=== PATIENT | female | born 1990 | race Caucasian/White ===

== ENCOUNTER → 2016-04-10 | Outpatient (CLI) | payer MEDICAID ==
[~2016-04-10] MED LIST: BACT800T5 PO; FE A1TAB3 PO; FERR325T PO; IBUP-232 PO; LEVO.05 PO; PREN1CAP33; TERC0.8C VAGINAL
== END ==
LOC: HPND 09:22
PROVIDERS: ATTEND Obstetrics & Gynecology Obstetrics
DX: O99.212 Obesity complicating pregnancy, second trimester (principal); E66.01 Morbid (severe) obesity due to excess calories; Z68.41 Body mass index [BMI] 40.0-44.9, adult
CPT/HCPCS: 76816

== ENCOUNTER → 2016-05-22 | Outpatient (CLI) | payer MEDICAID ==
[~2016-05-22] MED LIST changes: -TERC0.8C VAGINAL
== END ==
LOC: HPND 08:49
PROVIDERS: ATTEND Obstetrics & Gynecology Obstetrics
DX: O99.213 Obesity complicating pregnancy, third trimester (principal); E66.01 Morbid (severe) obesity due to excess calories; Z68.41 Body mass index [BMI] 40.0-44.9, adult
CPT/HCPCS: 76816

== ENCOUNTER 2016-07-05 13:43 | Emergency (ER) | payer MEDICAID ==
[~2016-07-05 13:43] MED LIST changes: -BACT800T5 PO; -FERR325T PO; -IBUP-232 PO
[2016-07-05 14:32] VITALS: BP 134/73; PULSE 114
--- NOTE | 2016-07-05 14:49 | PD ---
HPI Chief Complaint Leakage of fluid Date Seen: Jul 05, 2016 Time Seen: 14:41 Travel History International Travel<30 Days: No Contact w/Intl Traveler<30Days: No Known Affected Area: No History of Present Illness HPI This is a 26y/o at 38w6d who presents to the [facility] with c/o leakage of fluid since 299, she initially noted a gush of fluid with some minimal leakage since then. She denies vaginal bleeding or leakage of fluid with reports of active movements. care at [facility] [place] [facility], records reviewed, complicated by: 1. young multigravida 2. hypothyroidism 3. polyhydramnios which resolved 4. abn 1 hr glucose and normal 3 hour glucose 5. Marginal previa which resolved 6. desires tubal ligation Para: 3 : 6 Miscarriage: 1 History Past Medical History Narrative Medical Hypothyroidism Obstetric History Obstetric History 2009 38w , induced due to cholelithiasis and need for surgery, Male 2010 39w , Female 2014 39w , Male Past Surgical History Narrative Surgical Lap [place] 2009 Family History Family History: Negative Social History Alcohol Use: No Tobacco Use: No Substance Abuse: No Allergies-Medications (Allergen,Severity, Reaction): Coded Allergies: No Known Allergies (Unverified , 07/04/16) Home Meds Active Scripts Multi-Marva/Iron-Vit C-B36-Aunkc Acid (Feriva 17/10)75-175-0.012-1 mg Tab1 Tab PO DAILY #30 BOTTLE Ref 6 Prov:Geovanna Ojeda 02/06/16 Levothyroxine (Synthroid)50 Mcg Tab50 Mcg PO DAILY #30 TAB Ref 6 Prov:Geovanna Ojeda 02/05/16 Reported Medications Vit W/ Fe Polysacch C (Vitafol Fe+ 90-1-200 & 50 mg)1 Cap Cap 02/06/16 Review of Systems Except as stated in HPI: all other systems reviewed are Neg Physical Exam Vital Signs Date Time Temp Pulse Resp B/P Pulse Ox O2 Delivery O2 Flow Rate FiO2 07/05/16 14:32 114 134/73 Narrative GENERAL: Well-nourished, well-developed patient. SKIN: Warm and dry. HEAD: Normocephalic and atraumatic. EYES: No scleral icterus. No injection or drainage. ENT: No nasal drainage noted. Mucous membranes pink. Airway patent. NECK: Supple, trachea midline. No JVD. CARDIOVASCULAR: Regular rate and rhythm without murmurs, gallops, or rubs. RESPIRATORY: Breath sounds equal bilaterally. No accessory muscle use. BREASTS: Bilateral exam showed no masses , no retractions, no nipple discharge. ABDOMEN/GI: Abdomen soft, non-tender, bowel sounds present, no rebound, no guarding, Fundal height 40+ GENITOURINARY: VE: 2/l/p FHT's: Cat I tracing, initial and maternal tachycardia resolved with po hydration Contractions: Few EXTREMITIES: No cyanosis or edema. BACK: Nontender without obvious deformity. No CVA tenderness. NEUROLOGICAL: Awake and alert. Motor and sensory grossly within normal limits. Five out of 5 muscle strength in all muscle groups. Normal speech. U/a: concentrated, dark Data Data Orders Vital Signs (Adult) .ON ADMISSION (07/05/16 14:33) ^ Labor Status (07/05/16 14:33) Pamg-1 Test .ONCE (07/05/16 14:33) [facility] Medical Record Reviewed: Yes Interpretation(s) Routine care Plan 26y/o at 38w6d who presents to the [facility] for evaluation of PROM. -Amnisure negative -reassuring status -increase PO fluids -f/u in clinic on Thursday as scheduled Diagnosis Diagnosis: Primary Impression: Anemia complicating Qualified Code: O99.013 - Anemia complicating , third trimester Additional Impressions: Normal , repeat Hx of ectopic Dehydration Disposition: 01 DISCHARGE HOME Condition: Stable Patient Instructions: Early Labor Signs (ED) Additional Instructions: F/u with Primary OB on Thursday as scheduled Bridgette Milligan MD Jul 05, 2016 14:49
[2016-08-27] MEDS ORDERED: BACT800T5 PO (09:44)
[2016-09-16] MEDS ORDERED: LEVO.05 PO (14:17)
== END 2016-07-05 14:57 | disposition home or self-care (01) ==
LOC: HOBED 13:43
DX: O99.013 Anemia complicating pregnancy, third trimester (principal); E86.0 Dehydration; O99.283 Endocrine, nutritional and metabolic diseases complicating pregnancy, third trimester; Z3A.38 38 weeks gestation of pregnancy; E03.9 Hypothyroidism, unspecified
CPT/HCPCS: 59025; 84112

== ENCOUNTER 2016-07-10 17:27 | Inpatient (IN) | payer MEDICAID ==
[2016-07-10] VITALS (60 sets, daily range): BP systolic 83–133; BP diastolic 40–94; PULSE 90–120; RESP 16–18; TEMP 98.9
[2016-07-10] MEDS ORDERED: LACTATED RINGER'S 1000 ML INJ 1,000 ML IV SCH (18:14)
[2016-07-10] MEDS ORDERED: LACTATED RINGER'S 1000 ML INJ 1,000 ML IV PRN (18:14)
[2016-07-10] MEDS ORDERED: OXYTOCIN 30 UNITS-500ML PREMIX 500 ML IV ONE (18:15)
[2016-07-10] MEDS ORDERED: LIDOCAINE HCL 1% 50 ML VIAL INFIL PRN (18:15)
[2016-07-10] MEDS ORDERED: CITRIC ACID-SODIUM CITRATE LIQ 30 ML UDC PO SCH (18:15)
[2016-07-10] MEDS ORDERED: LIDOCAINE HCL 1% 50 ML VIAL I-DERMAL PRN (18:15)
[2016-07-10] MEDS ORDERED: MINERAL OIL 10 ML VIAL TOPICAL PRN (18:15)
[2016-07-10] MEDS ORDERED: SODIUM CHLORID 0.9% 500 ML INJ 500 ML IV PRN (18:15)
[2016-07-10] MEDS ORDERED: SODIUM CHLOR 0.9% 1000 ML INJ 1,000 ML IV PRN (18:34)
--- NOTE | 2016-07-10 18:42 | HHI.HP ---
HPI Chief Complaint Contractions Date Seen: Jul 10, 2016 (Sofi Abbasi MD R1) Travel History International Travel<30 Days: No Contact w/Intl Traveler<30Days: No Known Affected Area: No (Sofi Abbasi MD) History of Present Illness HPI Patient is a 26-year-old at 39/4 weeks gestation that presents to the [facility] ED with a chief complaint of contractions that began at 6 AM this morning and worsened throughout the day. Initially the contractions were 5-10 minutes apart and now every 5 minutes according to the patient. She denies loss of fluid, vaginal bleeding, and endorses positive movements. She believes she lost her mucous plug in the last few days. Patient gets her care at [facility] now. Her JERALD is July 13 by first trimester ultrasound. All her labs were negative or within normal limits. She is GBS negative. Patient would like an epidural. They're expecting a boy and she is very excited. Para: 3 : 6 Miscarriage: 1 (Sofi Abbasi MD) History Past Medical History Narrative Medical Hypothyroidism on levothyroxine Chronic anemia on iron (Sofi Abbasi MD) Obstetric History Obstetric History -3 full-term vaginal deliveries -1 ectopic at 6 weeks [ #4] -1 miscarriage at 6 weeks [ #1] (Sofi Abbasi MD) Past Surgical History Narrative Surgical Cholecystectomy in 2009 (Sofi Abbasi MD) Family History Narrative Family History Maternal aunt has diabetes. No family history of hypertension. (Sofi Abbasi MD) Social History Alcohol Use: No Tobacco Use: No Substance Abuse: No (Sofi Abbasi MD) Allergies-Medications (Allergen,Severity, Reaction): Coded Allergies: No Known Allergies (Unverified , 07/08/16) Home Meds Active Scripts Multi-Marva/Iron-Vit C-U20-Jjoco Acid (Feriva 17/10)75-175-0.012-1 mg Tab1 Tab PO DAILY #30 BOTTLE Ref 6 Prov:Geovanna Ojeda 02/06/16 Levothyroxine (Synthroid)50 Mcg Tab50 Mcg PO DAILY #30 TAB Ref 6 Prov:Geovanna Ojeda 02/05/16 Reported Medications Vit W/ Fe Polysacch C (Vitafol Fe+ 90-1-200 & 50 mg)1 Cap Cap 02/06/16 Review of Systems General / Constitutional: No: Fever, Chills Eyes: No: Blurred Vision, Visual changes HENT: No: Headaches Cardiovascular: No: Chest Pain or Discomfort Respiratory: No: Short of Breath Gastrointestinal: No: Nausea, Vomiting, Diarrhea Genitourinary: No: Dysuria Musculoskeletal: No: Weakness Skin: No Rash Neurologic: No: Weakness, Headache (EkoSofi MD R1) Physical Exam Narrative GENERAL: Well-nourished, well-developed patient. SKIN: Warm and dry. HEAD: Normocephalic and atraumatic. EYES: No scleral icterus. No injection or drainage. ENT: No nasal drainage noted. Mucous membranes pink. Airway patent. NECK: Supple, trachea midline. No JVD. CARDIOVASCULAR: Regular rate and rhythm without murmurs, gallops, or rubs. RESPIRATORY: Breath sounds equal bilaterally. No accessory muscle use. ABDOMEN/GI: Abdomen soft, non-tender, bowel sounds present, no rebound, no guarding Gravid to 39 weeks size GENITOURINARY: External Genitalia: intact and normal in appearance Cervix: Anterior Dilatation: 4 cm Effacement: 60% Station: -3 Presentation: Vertex Membranes: Intact and bulging Uterine Contractions: Present, every 2-3 minutes FHT's: Category: 1 Baseline: 155 Reactive: Yes up to 165 Variability: Months Decels: None EXTREMITIES: No cyanosis or edema. BACK: Nontender without obvious deformity. No CVA tenderness. NEUROLOGICAL: Awake and alert. Motor and sensory grossly within normal limits. Five out of 5 muscle strength in all muscle groups. Normal speech. (EkSofi lee MD R1) Data Data Vital Signs Reviewed: Yes Orders Admit To Inpatient (07/10/16 ) Code Status (07/10/16 18:14) Vital Signs (Adult) .Per protocol (07/10/16 18:14) Activity Oob Ad Dorothea (07/10/16 18:14) Heart (07/10/16 18:14) Amnioinfusion (07/10/16 18:14) Urinary Catheter Management .ONCE (07/10/16 18:14) Diet Liquid (07/10/16 Dinner) Lactated Ringer's 1000 Ml Inj (Lr 1000 M (07/10/16 18:14) Lactated Ringer's 1000 Ml Inj (Lr 1000 M (07/10/16 18:14) Sodium Chlorid 0.9% 500 Ml Inj (Ns 500 M (07/10/16 18:15) Sodium Chlor 0.9% 1000 Ml Inj (Ns 1000 M (07/10/16 18:34) Lidocaine 1% Inj (50 Ml) (Xylocaine 1% I (07/10/16 18:15) Citric Acid-Sodium Citrate Liq (Bicitra (07/10/16 18:15) Fentanyl Inj (Fentanyl Inj) (07/10/16 18:15) Fentanyl Inj (Fentanyl Inj) (07/10/16 18:15) Complete Blood Count With Diff (07/10/16 18:14) Hold Clot (07/10/16 18:14) Abo/Rh Blood Type (07/10/16 18:14) Urinalysis - C+S If Indicated (07/10/16 18:14) Resp Oxygen Non Rebreathe Mask (07/10/16 ) ^ Epidural / Intrathecal Infus (07/10/16 18:14) Oxytocin 30 Units-500ml Premix (Pitocin (07/10/16 18:15) Lidocaine 1% Inj (50 Ml) (Xylocaine 1% I (07/10/16 18:15) Light Mineral Oil (Muri-Lube Oil) (07/10/16 18:15) Inpatient Certification (07/10/16 ) Ob (2e) Additional Admit Info (07/10/16 18:21) (Sofi Abbasi MD R1) Assessment/Plan Problem List: (1) 39 weeks gestation of Assessment and Plan 26-year-old at 39/4 weeks presents in active labor. GBS negative. Intrauterine - tracing category 1, reassuring -Frequent contractions on tocometer -Cervical exam: 60/-3, bulging sac -Admit to labor and delivery -Continuous monitoring -Routine antepartum care -Epidural per patient request -Anticipate vaginal delivery Discharge Planning Anticipate discharge in the next 2-3 days (Sofi Abbasi MD R1) Attending Attestation The exam, history, and the medical decision-making described in the above note were completed with the assistance of the resident provider. I reviewed and agree with the findings presented. I attest that I had a [id number] encounter with the patient on the same day, and personally performed and documented my assessment and findings in the medical record. (Cheryl Purcell MD) Sofi Abbasi MD R1 Jul 10, 2016 18:42 Cheryl Purcell MD Jul 10, 2016 20:36
[2016-07-10 19:27] LABS: AUTOMATED NEUTROPHIL # 13.4 TH/MM3 (1.8-7.7); BASOPHIL # 0.1 TH/MM3 (0-0.2); BASOPHIL % 0.3 % (0.0-2.0); EOSINOPHIL # 0.1 TH/MM3 (0-0.4); EOSINOPHIL % 0.9 % (0.0-4.0); HEMATOCRIT 29.5 % (35.0-46.0); LYMPH % 10.3 % (9.0-44.0); LYMPHOCYTE # 1.6 TH/MM3 (1.0-4.8); MEAN CELL VOLUME 73.4 FL (80.0-100.0); MEAN CORPUSCULAR HEMOGLOBIN 22.2 PG (27.0-34.0); MEAN CORPUSCULAR HGB CONC 30.2 % (32.0-36.0); NEUT % 83.5 % (16.0-70.0); PLATELET COUNT 304 TH/MM3 (150-450); RED BLOOD COUNT 4.01 MIL/MM3 (4.00-5.30); RED CELL DISTRIBUTION WIDTH 20.2 % (11.6-17.2)
[2016-07-10] MEDS ORDERED: fentaNYL 2MCG-BUPIV 0.125% INJ 100 ML ONE (19:27)
[2016-07-10 19:30] LABS: BLOOD, URINE NEG (NEG); GLUCOSE,URINE NEG (NEG); KETONE, URINE NEG (NEG); NITRITE,URINE NEG (NEG); SQUAMOUS EPITHELIAL CELL URINE 1 /hpf (0-5); URINE COLOR YELLOW (YELLW/STRAW)
[2016-07-10 19:32] LABS: HEMO FLAGS AUTO DIFF
[2016-07-10 19:34] LABS: COMMENT (UR) CULT NOT INDICATED; CULTURE IF INDICATED CULT NOT INDICATED
[2016-07-10 20:08] LABS: BANDS 17 % (0-6); BASOPHILS 1 % (0-2); EOSINOPHILS 3 % (0-4); NEUTROPHIL # MANUAL DIFF 13.1 TH/MM3 (1.8-7.7); PLATELET ESTIMATE SMEAR NORMAL (NORMAL); PLATELET MORPHOLOGY NORMAL (NORMAL); POLYS (SEG NEUTROPHILS) 65 % (16-70); SCAN/DIFF FINAL DIFF MANUAL; TOXIC GRANULATION 1+ (NORMAL); WBC DIFF SAMPLE 100
[2016-07-11] VITALS (24 sets, daily range): BP systolic 94–130; BP diastolic 40–72; PULSE 66–111; RESP 18–24; TEMP 98.3–98.9
--- NOTE | 2016-07-11 00:54 | PD ---
History of Present Illness History of Present Illness HPI Chief Complaint Contractions Date Seen: Jul 10, 2016 (Sofi Abbasi MD R1) Travel History International Travel<30 Days: No Contact w/Intl Traveler<30Days: No Known Affected Area: No (Sofi Abbasi MD R1) History of Present Illness HPI Patient is a 26-year-old at 39/4 weeks gestation that presents to the [facility] ED with a chief complaint of contractions that began at 6 AM this morning and worsened throughout the day. Initially the contractions were 5-10 minutes apart and now every 5 minutes according to the patient. She denies loss of fluid, vaginal bleeding, and endorses positive movements. She believes she lost her mucous plug in the last few days. Patient gets her care at [facility] now. Her JERALD is July 13 by first trimester ultrasound. All her labs were negative or within normal limits. She is GBS negative. Patient would like an epidural. They're expecting a boy and she is very excited. Para: 3 : 6 Miscarriage: 1 (Sofi Abbasi MD R1) History Past Medical History Narrative Medical Hypothyroidism on levothyroxine Chronic anemia on iron (Sofi Abbasi MD) Obstetric History Obstetric History -3 full-term vaginal deliveries -1 ectopic at 6 weeks [ #4] -1 miscarriage at 6 weeks [ #1] (Sofi Abbasi MD) Past Surgical History Narrative Surgical Cholecystectomy in 2009 (Sofi Abbasi MD) Family History Narrative Family History Maternal aunt has diabetes. No family history of hypertension. (Sofi Abbasi MD) Social History Alcohol Use: No Tobacco Use: No Substance Abuse: No (Sofi Abbasi MD) Allergies-Medications (Allergen,Severity, Reaction): Coded Allergies: No Known Allergies (Unverified , 07/08/16) Home Meds Active Scripts Multi-Marva/Iron-Vit C-E45-Gnscf Acid (Feriva 17/10)75-175-0.012-1 mg Tab1 Tab PO DAILY #30 BOTTLE Ref 6 Prov:Geovanna Ojeda 02/06/16 Levothyroxine (Synthroid)50 Mcg Tab50 Mcg PO DAILY #30 TAB Ref 6 Prov:Geovanna Ojeda RACHNA 02/05/16 Reported Medications Vit W/ Fe Polysacch C (Vitafol Fe+ 90-1-200 & 50 mg)1 Cap Cap 02/06/16 Review of Systems General / Constitutional: No: Fever, Chills Eyes: No: Blurred Vision, Visual changes HENT: No: Headaches Cardiovascular: No: Chest Pain or Discomfort Respiratory: No: Short of Breath Gastrointestinal: No: Nausea, Vomiting, Diarrhea Genitourinary: No: Dysuria Musculoskeletal: No: Weakness Skin: No Rash Neurologic: No: Weakness, Headache (EkoSofi MD R1) Physical Exam Narrative GENERAL: Well-nourished, well-developed patient. SKIN: Warm and dry. HEAD: Normocephalic and atraumatic. EYES: No scleral icterus. No injection or drainage. ENT: No nasal drainage noted. Mucous membranes pink. Airway patent. NECK: Supple, trachea midline. No JVD. CARDIOVASCULAR: Regular rate and rhythm without murmurs, gallops, or rubs. RESPIRATORY: Breath sounds equal bilaterally. No accessory muscle use. ABDOMEN/GI: Abdomen soft, non-tender, bowel sounds present, no rebound, no guarding Gravid to 39 weeks size GENITOURINARY: External Genitalia: intact and normal in appearance Cervix: Anterior Dilatation: 4 cm Effacement: 60% Station: -3 Presentation: Vertex Membranes: Intact and bulging Uterine Contractions: Present, every 2-3 minutes FHT's: Category: 1 Baseline: 155 Reactive: Yes up to 165 Variability: Months Decels: None EXTREMITIES: No cyanosis or edema. BACK: Nontender without obvious deformity. No CVA tenderness. NEUROLOGICAL: Awake and alert. Motor and sensory grossly within normal limits. Five out of 5 muscle strength in all muscle groups. Normal speech. (Sofi Abbasi MD R1) Data Data Vital Signs Reviewed: Yes Orders Admit To Inpatient (07/10/16 ) Code Status (07/10/16 18:14) Vital Signs (Adult) .Per protocol (07/10/16 18:14) Activity Oob Ad Dorothea (07/10/16 18:14) Heart (07/10/16 18:14) Amnioinfusion (07/10/16 18:14) Urinary Catheter Management .ONCE (07/10/16 18:14) Diet Liquid (07/10/16 Dinner) Lactated Ringer's 1000 Ml Inj (Lr 1000 M (07/10/16 18:14) Lactated Ringer's 1000 Ml Inj (Lr 1000 M (07/10/16 18:14) Sodium Chlorid 0.9% 500 Ml Inj (Ns 500 M (07/10/16 18:15) Sodium Chlor 0.9% 1000 Ml Inj (Ns 1000 M (07/10/16 18:34) Lidocaine 1% Inj (50 Ml) (Xylocaine 1% I (07/10/16 18:15) Citric Acid-Sodium Citrate Liq (Bicitra (07/10/16 18:15) Fentanyl Inj (Fentanyl Inj) (07/10/16 18:15) Fentanyl Inj (Fentanyl Inj) (07/10/16 18:15) Complete Blood Count With Diff (07/10/16 18:14) Hold Clot (07/10/16 18:14) Abo/Rh Blood Type (07/10/16 18:14) Urinalysis - C+S If Indicated (07/10/16 18:14) Resp Oxygen Non Rebreathe Mask (07/10/16 ) ^ Epidural / Intrathecal Infus (07/10/16 18:14) Oxytocin 30 Units-500ml Premix (Pitocin (07/10/16 18:15) Lidocaine 1% Inj (50 Ml) (Xylocaine 1% I (07/10/16 18:15) Light Mineral Oil (Muri-Lube Oil) (07/10/16 18:15) Inpatient Certification (07/10/16 ) Ob (2e) Additional Admit Info (07/10/16 18:21) (Sofi Abbasi MD R1) Assessment/Plan Problem List: (1) 39 weeks gestation of Assessment and Plan 26-year-old at 39/4 weeks presents in active labor. GBS negative. Intrauterine - tracing category 1, reassuring -Frequent contractions on tocometer -Cervical exam: 60/-3, bulging sac -Admit to labor and delivery -Continuous monitoring -Routine antepartum care -Epidural per patient request -Anticipate vaginal delivery Discharge Planning Anticipate discharge in the next 2-3 days (Sofi Abbasi MD R1) Attending Attestation The exam, history, and the medical decision-making described in the above note were completed with the assistance of the resident provider. I reviewed and agree with the findings presented. I attest that I had a [id number] encounter with the patient on the same day, and personally performed and documented my assessment and findings in the medical record. (Cheryl Purcell MD) Sofi Abbasi MD R1 Jul 10, 2016 18:42 Cheryl Purcell MD Jul 10, 2016 20:36 <Electronically signed by Sofi Newell MD R1 Ekjesus> 07/10/16 1908 <Electronically signed by Cheryl Purcell MD> 07/10/162035 Cheryl Purcell MD Jul 11, 2016 00:54
--- NOTE | 2016-07-11 01:56 | PD.OB.DELI ---
Delivery Date: Jul 11, 2016 Anesthesia: Epidural Episiotomy: None Vaginal Delivery: Normal Presentation: Occiput anterior Nuchal Cord: None Delayed cord clamping (45 sec): No : Male One Minute : 9 Five Minute : 9 Weight: 3685g or 8lb 2oz Placenta: Spontaneous delivery, Intact, 3 vessel cord Laceration: No lacerations Additional Information true knot in umb cord noted Delivered by Dr. Jang, supervised and assisted by Dr. Purcell (Rocky Jang MD R1) Attestation I was present and scrubbed for the entire delivery procedure and directly supervised Dr. Murillo, PGY1. (Cheryl Purcell MD) Rocky Jang MD R1 Jul 11, 2016 01:56 Cheryl Purcell MD Jul 11, 2016 02:39
[2016-07-11] MEDS ORDERED: BENZOCAINE 20% TOPICAL SPRAY 60 ML CAN TOPICAL PRN (02:00)
[2016-07-11] MEDS ORDERED: ONDANSETRON ODT 4 MG TAB PO PRN (02:00)
[2016-07-11] MEDS ORDERED: ZOLPIDEM TARTRATE 5 MG TAB PO PRN (02:00)
[2016-07-11] MEDS ORDERED: WITCH HAZEL 50%/GLYCERIN 12.5% 40 PAD JAR TOPICAL PRN (02:00)
[2016-07-11] MEDS ORDERED: oxyCODONE/ACETAMINOPHEN 5 MG/325 MG TAB PO PRN ×2 (02:00)
[2016-07-11] MEDS ORDERED: ALUMINUM/MAGNESIUM/SIMETH 30 ML CUP PO PRN (02:00)
[2016-07-11] MEDS ORDERED: SODIUM CHLORIDE 0.9% FLUSH 10 ML FLUSH IV FLUSH PRN (02:00)
[2016-07-11] MEDS ORDERED: ACETAMINOPHEN 325 MG TAB PO PRN (02:00)
[2016-07-11] MEDS ORDERED: DOCUSATE SODIUM 50 MG/SENNA 8.6 MG TAB PO PRN (02:00)
[2016-07-11] MEDS: IBUPROFEN 600 MG TAB PO PRN ×3 (02:08→18:23)
[2016-07-11] MEDS: LEVOTHYROXINE SODIUM 50 MCG TAB PO SCH (06:45)
--- NOTE | 2016-07-11 07:23 | HHI.OB ---
Subjective Post Day: 0 Remarks day #0. AFVSS overnight. Pain well-controlled. Lochia more than a period. Denies dysuria. She is feeding the baby via bottle. Appetite good. No nausea or vomiting. Positive flatus. No bowel movement. Ambulating well. Denies calf pain, shortness of breath, or cough. Otherwise, she is doing well this morning and has no other complaints. (Eko,Sofi U R1) Objective Vitals/I&O Vital Signs Date Time Temp Pulse Resp B/P Pulse Ox O2 Delivery O2 Flow Rate FiO2 07/11/16 04:50 102/50 07/11/16 04:50 98.8 87 18 07/11/16 03:46 86 104/40 07/11/16 03:31 89 109/54 07/11/16 03:20 18 07/11/16 03:15 111 115/72 07/11/16 03:05 18 07/11/16 03:01 96 94/49 07/11/16 02:50 18 07/11/16 02:46 93 110/53 07/11/16 02:35 18 07/11/16 02:31 92 109/48 07/11/16 02:18 18 07/11/16 02:16 95 116/50 07/11/16 02:01 95 108/52 07/11/16 02:00 18 07/11/16 02:00 98.3 07/11/16 01:46 97 125/57 07/11/16 01:32 87 126/42 07/11/16 01:16 97 112/48 07/11/16 01:00 111 130/63 07/11/16 00:46 103 116/60 07/11/16 00:31 101 126/63 07/11/16 00:16 97 119/67 07/11/16 00:01 95 118/51 07/11/16 00:01 95 118/51 07/10/16 23:50 94 07/10/16 23:46 99 120/62 07/10/16 23:45 95 07/10/16 23:40 104 07/10/16 23:35 113 07/10/16 23:31 106 132/70 07/10/16 23:30 120 07/10/16 23:25 104 07/10/16 23:20 93 07/10/16 23:16 105 118/64 07/10/16 23:15 97 07/10/16 23:15 98.9 18 07/10/16 23:10 99 07/10/16 23:05 97 07/10/16 23:01 97 122/67 07/10/16 23:00 95 07/10/16 22:55 90 07/10/16 22:50 93 07/10/16 22:45 104 07/10/16 22:45 101 120/70 07/10/16 22:40 111 07/10/16 22:35 92 07/10/16 22:31 103 116/61 07/10/16 22:30 94 07/10/16 22:25 100 07/10/16 22:20 96 07/10/16 22:15 102 122/67 07/10/16 22:15 113 07/10/16 22:10 97 07/10/16 22:05 104 07/10/16 22:00 103 07/10/16 22:00 112 106/66 07/10/16 21:55 119 07/10/16 21:50 104 07/10/16 21:46 113 105/61 07/10/16 21:45 107 07/10/16 21:40 101 07/10/16 21:35 98 07/10/16 21:31 105 110/59 07/10/16 21:30 107 07/10/16 21:16 110 83/40 07/10/16 21:15 101 07/10/16 21:10 96 07/10/16 21:00 102 116/94 07/10/16 20:45 90 121/66 07/10/16 20:35 106 07/10/16 20:31 109 105/57 07/10/16 20:30 102 07/10/16 20:26 112 122/65 07/10/16 20:25 108 07/10/16 20:21 104 124/62 07/10/16 20:20 109 07/10/16 20:16 112 118/61 07/10/16 20:15 113 07/10/16 20:11 104 121/61 07/10/16 20:06 104 133/73 07/10/16 20:00 114 07/10/16 20:00 106 129/72 07/10/16 19:56 99 07/10/16 19:56 125/73 07/10/16 19:55 106 07/10/16 19:52 112 131/69 07/10/16 19:50 105 07/10/16 19:45 108 07/10/16 19:27 18 07/10/16 19:00 16 07/10/16 18:49 104 111/51 Objective Remarks GENERAL: Well-nourished, well-developed patient. CARDIOVASCULAR: Regular rate and rhythm without murmurs, gallops, or rubs. RESPIRATORY: Breath sounds equal bilaterally. No accessory muscle use. ABDOMEN/GI: Abdomen soft, non-tender. Fundus: Firm, non-tender at umbilicus. GENITOURINARY: Light to moderate bleeding. EXTREMITIES: No cyanosis or edema, non-tender, without signs of DVT. Medications and IVs Current Medications Medications (Trade) Dose Ordered Sig/Brittny Route Start Time Stop Time Status Last Admin (Muri-Lube Oil) 10 ml UNSCH PRN TOPICAL 07/10/16 18:15 (Synthroid) 50 mcg DAILY@06 PO 07/11/16 06:00 07/11/16 06:45 (NS Flush) 2 ml BID IV FLUSH 07/11/16 09:00 (NS Flush) 2 ml UNSCH PRN IV FLUSH 07/11/16 02:00 (Tylenol) 650 mg Q4H PRN PO 07/11/16 02:00 (Motrin) 600 mg Q6H PRN PO 07/11/16 02:00 07/11/16 02:08 (Percocet 5-325 Mg) 1 tab Q4H PRN PO 07/11/16 02:00 (Percocet 5-325 Mg) 2 tab Q4H PRN PO 07/11/16 02:00 07/11/16 02:08 (Americaine 20% Top Spr) 1 spray Q4H PRN TOPICAL 07/11/16 02:00 07/11/16 06:44 (Tucks Pads) 1 applic QID PRN TOPICAL 07/11/16 02:00 07/11/16 06:44 (Sonja-Colace) 2 tab Q12H PRN PO 07/11/16 02:00 (Ambien) 5 mg HS PRN PO 07/11/16 02:00 (M-M-R Ii Inj) 0.5 ml ONCE ONCE SQ 07/11/16 16:00 07/11/16 16:01 (Boostrix Inj) 0.5 ml ONCE ONCE IM 07/11/16 16:00 07/11/16 16:01 (Mag-Al Plus Susp Liq) 15 ml Q8H PRN PO 07/11/16 02:00 (Zofran Odt) 4 mg Q6H PRN PO 07/11/16 02:00 (Sofi Abbasi MD R1) Assessment/Plan Assessment and Plan 26 y/o female who is PPD# 0 s/p -Motrin PRN for pain -Pericolase PRN for constipation -Encouraged OOB. Advised pelvic rest for 6 wks -Will need a follow-up appointment within 6 wks -Re: ctrl - patient would like a tubal ligation -D/c most likely in 1-[address] Purcell Discharge Planning Anticipate discharge in 1-2 days (Sofi Abbasi MD R1) Attending Attestation The exam, history, and the medical decision-making described in the above note were completed with the assistance of the resident provider. I reviewed and agree with the findings presented. I attest that I had a [id number] encounter with the patient on the same day, and personally performed and documented my assessment and findings in the medical record. (Cheryl Purcell MD) Sofi Abbasi MD R1 Jul 11, 2016 07:23 Cheryl Purcell MD Jul 11, 2016 11:13
[2016-07-11] MEDS ORDERED: SODIUM CHLORIDE 0.9% FLUSH 10 ML FLUSH IV FLUSH SCH (09:00)
[2016-07-11] MEDS ORDERED: MEASLES, MUMPS, RUBELLA VACCINE 0.5 ML VIAL SQ ONE (16:00)
[2016-07-11] MEDS ORDERED: DIPHTH/TETANUS/ACEL PERTUSSIS (BOOSTER) 0.5 ML VIAL/PFS IM ONE (16:00)
[2016-07-12] MEDS: LEVOTHYROXINE SODIUM 50 MCG TAB PO SCH (05:13)
[2016-07-12] MEDS: IBUPROFEN 600 MG TAB PO PRN ×3 (05:19→21:19)
--- NOTE | 2016-07-12 11:45 | HHI.OB ---
Subjective Post Day: 1 Remarks 26 year old female s/p at 39/5 wks gestation, PPD 1. AFVSS. Patient reports she is feeling well. Bleeding is decreasing and pain is well- controlled. Of note, she is complaining of right leg pain behind the knee that comes and goes. No associate swelling, pain or erythema. Not present during ambulation. Started while at hospital. She is formula feeding and bonding well with baby. Ambulating without difficulties. She is tolerating a diet without nausea or vomiting. She has not had a bowel movement. She has passed gas. Denies chest pain, dysuria, shortness of breath, or calf pain. (Aracelis Ramirez MD R2) Remarks Patient seen and evaluated with resident under direct supervision, agree with assessment and plan. (Glenn Lundy MD) Objective Objective Remarks GENERAL: Well-nourished, well-developed patient. CARDIOVASCULAR: Regular rate and rhythm without murmurs, gallops, or rubs. RESPIRATORY: Breath sounds equal bilaterally. No accessory muscle use. ABDOMEN/GI: Abdomen soft, non-tender. Fundus: Firm, non-tender at umbilicus. GENITOURINARY: Light to moderate bleeding. EXTREMITIES: No cyanosis or edema, non-tender, without signs of DVT. Medications and IVs Current Medications Medications (Trade) Dose Ordered Sig/Brittny Route Start Time Stop Time Status Last Admin (Muri-Lube Oil) 10 ml UNSCH PRN TOPICAL 07/10/16 18:15 (Synthroid) 50 mcg DAILY@06 PO 07/11/16 06:00 07/12/16 05:13 (NS Flush) 2 ml BID IV FLUSH 07/11/16 09:00 (NS Flush) 2 ml UNSCH PRN IV FLUSH 07/11/16 02:00 (Tylenol) 650 mg Q4H PRN PO 07/11/16 02:00 (Motrin) 600 mg Q6H PRN PO 07/11/16 02:00 07/12/16 05:19 (Percocet 5-325 Mg) 1 tab Q4H PRN PO 07/11/16 02:00 07/11/16 20:14 (Percocet 5-325 Mg) 2 tab Q4H PRN PO 07/11/16 02:00 07/11/16 02:08 (Americaine 20% Top Spr) 1 spray Q4H PRN TOPICAL 07/11/16 02:00 07/11/16 06:44 (Tucks Pads) 1 applic QID PRN TOPICAL 07/11/16 02:00 07/11/16 06:44 (Sonja-Colace) 2 tab Q12H PRN PO 07/11/16 02:00 (Ambien) 5 mg HS PRN PO 07/11/16 02:00 (Mag-Al Plus Susp Liq) 15 ml Q8H PRN PO 07/11/16 02:00 (Zofran Odt) 4 mg Q6H PRN PO 07/11/16 02:00 (Aracelis Ramirez MD R2) Assessment/Plan Problem List: (1) 39 weeks gestation of (2) Anemia complicating (3) Vaginal delivery Assessment and Plan 26 yo female s/p PPD 1. - AFVSS - Continue routine care * Is complaining of right leg pain behind the knee. Physical exam reassuring. Ultrasound ordered for evaluation of DVT. - Motrin and Percocet PRN pain - Encourage OOB - Pelvic rest x 6 wks. - Contraception: Options discussed, is planning to get a tubal ligation as an outpatient. This has been discussed with care for woman. - Recommend post follow up in 6 wks - Anticipate D/C tomorrow dw Dr. Lundy (Aracelis Ramirez MD R2) Aracelis Ramirez MD R2 Jul 12, 2016 11:45 Glenn Lundy MD Jul 13, 2016 19:12
[2016-07-12] MEDS ORDERED: FERR325T PO (11:52)
[2016-07-12] MEDS ORDERED: IBUP-232 PO (11:52)
--- NOTE | 2016-07-12 11:53 | HHI.DCPOC ---
Discharge Care Plan Diagnosis: (1) Anemia complicating (2) Vaginal delivery Report Symptoms to Your Doctor -Temperate above 100.5 degrees -Redness, of incision or excessive or foul smelling drainage -Unusual pain or calf pain -Increased vaginal bleeding -Painful or difficulty urinating -Feelings of extreme sadness or anxiety after 2 weeks Goals to Promote Your Health * To prevent worsening of your condition and complications * To maintain your health at the optimal level Directions to Meet Your Goals Take your medications as prescribed Follow your dietary instruction Follow activity as directed Ensure plenty of rest for recovery Drink fluids for hydration Keep your appointments as scheduled Take your immunizations and boosters as scheduled If your symptoms worsen call your PCP, if no PCP go to Urgent Care Center or Emergency Room Smoking is Dangerous to Your Health. Avoid second hand smoke Call the 24-hour crisis hotline for domestic abuse at Aracelis Ramirez MD R2 Jul 12, 2016 11:53
--- NOTE | 2016-07-12 12:15 | RADRPT ---
EXAM DATE/TIME: 07/12/2016 11:47 [place] COMPARISON: No previous studies available for comparison. INDICATIONS : Right leg pain. MEDICAL HISTORY : Hypothyroidism. Anemia. SURGICAL HISTORY : Cholecystectomy. ENCOUNTER: Initial ACUITY: 2 day PAIN SCORE: 3/10 LOCATION: Right leg. TECHNIQUE: Venous ultrasound of the leg was performed from the inguinal ligament to the proximal calf. Real-asaf e, color Doppler and spectral tracing, compression and augmentation techniques were used. FINDINGS: There is normal compressibility of the deep venous system from the inguinal region to the proximal ca lf. No echogenic clot is seen in the lumen of the common femoral, femoral, popliteal, and posterior tibial veins. There is a normal response of the venous system to proximal and distal augmentation an d respiration. CONCLUSION: Normal examination. Rahel Anthony MD on July 12, 2016 at 12:13 Board Certified Radiologist. This report was verified electronically.
[2016-07-13] MEDS: LEVOTHYROXINE SODIUM 50 MCG TAB PO SCH (06:01)
--- NOTE | 2016-07-13 07:48 | HHI.OB ---
Subjective Post Day: 2 Remarks 26 year old female s/p at 39/5 wks gestation, PPD 2. AFVSS. Patient reports she is feeling well. Bleeding is decreasing and pain is well- controlled. She is formula feeding and bonding well with baby. Ambulating without difficulties. She is tolerating a diet without nausea or vomiting. Endorses bowel movement and flatus. Denies chest pain, dysuria, shortness of breath, or calf pain. Objective Objective Remarks GENERAL: Well-nourished, well-developed patient. CARDIOVASCULAR: Regular rate and rhythm without murmurs, gallops, or rubs. RESPIRATORY: Breath sounds equal bilaterally. No accessory muscle use. ABDOMEN/GI: Abdomen soft, non-tender. Fundus: Firm, non-tender at umbilicus. GENITOURINARY: Light to moderate bleeding. EXTREMITIES: No cyanosis or edema, non-tender, without signs of DVT. Medications and IVs Current Medications Medications (Trade) Dose Ordered Sig/Brittny Route Start Time Stop Time Status Last Admin (Muri-Lube Oil) 10 ml UNSCH PRN TOPICAL 07/10/16 18:15 (Synthroid) 50 mcg DAILY@06 PO 07/11/16 06:00 07/13/16 06:01 (NS Flush) 2 ml BID IV FLUSH 07/11/16 09:00 (NS Flush) 2 ml UNSCH PRN IV FLUSH 07/11/16 02:00 (Tylenol) 650 mg Q4H PRN PO 07/11/16 02:00 (Motrin) 600 mg Q6H PRN PO 07/11/16 02:00 07/12/16 21:19 (Percocet 5-325 Mg) 1 tab Q4H PRN PO 07/11/16 02:00 07/11/16 20:14 (Percocet 5-325 Mg) 2 tab Q4H PRN PO 07/11/16 02:00 07/11/16 02:08 (Americaine 20% Top Spr) 1 spray Q4H PRN TOPICAL 07/11/16 02:00 07/11/16 06:44 (Tucks Pads) 1 applic QID PRN TOPICAL 07/11/16 02:00 07/11/16 06:44 (Sonja-Colace) 2 tab Q12H PRN PO 07/11/16 02:00 (Ambien) 5 mg HS PRN PO 07/11/16 02:00 (Mag-Al Plus Susp Liq) 15 ml Q8H PRN PO 07/11/16 02:00 (Zofran Odt) 4 mg Q6H PRN PO 07/11/16 02:00 Assessment/Plan Problem List: (1) 39 weeks gestation of (2) Anemia complicating (3) Vaginal delivery Assessment and Plan 26 yo female s/p PPD 1. - AFVSS - Continue routine care - Motrin and Percocet PRN pain - Encourage OOB - Pelvic rest x 6 wks. - Contraception: Options discussed, is planning to get a tubal ligation as an outpatient. This has been discussed with care for woman. - Recommend post follow up in 6 wks - Anticipate D/C today wdw Marvel Carlos MD R1 Jul 13, 2016 07:48
[2016-08-27] MEDS ORDERED: BACT800T5 PO (09:44)
[2016-09-16] MEDS ORDERED: LEVO.05 PO (14:17)
== END 2016-07-13 10:40 | disposition home or self-care (01) | DRG 775 ==
LOC: HOBED 17:27 → H2EA 18:23 → H1EA 07-11 04:22
PROVIDERS: ADMIT Obstetrics & Gynecology; ATTEND Obstetrics & Gynecology
PROC: 10E0XZZ Delivery of Products of Conception, External Approach (ICD-10-PCS; principal; 2016-07-11)
DX: O99.02 Anemia complicating childbirth (principal); E03.9 Hypothyroidism, unspecified; O99.284 Endocrine, nutritional and metabolic diseases complicating childbirth; D64.9 Anemia, unspecified; Z37.0 Single live birth; Z3A.39 39 weeks gestation of pregnancy
CPT/HCPCS: 76816; 76818; 81001; 85007; 85027; 86900; 86901; 90715; 93971; 99285; J2590; J3010; J7120

== ENCOUNTER → 2016-08-05 | Outpatient (CLI) | payer MEDICAID ==
[~2016-08-05] MED LIST changes: +BACT800T5 PO; -FE A1TAB3 PO; +FERR325T PO; +IBUP-232 PO
[2016-08-05 12:11] LABS: AUTOMATED NEUTROPHIL # 6.5 TH/MM3 (1.8-7.7); BASOPHIL % 0.2 % (0.0-2.0); EOSINOPHIL # 0.2 TH/MM3 (0-0.4); EOSINOPHIL % 2.6 % (0.0-4.0); HEMATOCRIT 29.5 % (35.0-46.0); LYMPH % 21.7 % (9.0-44.0); MEAN CELL VOLUME 72.2 FL (80.0-100.0); MEAN CORPUSCULAR HEMOGLOBIN 22.8 PG (27.0-34.0); MEAN CORPUSCULAR HGB CONC 31.6 % (32.0-36.0); MONO % 4.9 % (0.0-8.0); NEUT % 70.6 % (16.0-70.0); PLATELET COUNT 341 TH/MM3 (150-450); RED BLOOD COUNT 4.09 MIL/MM3 (4.00-5.30); RED CELL DISTRIBUTION WIDTH 19.9 % (11.6-17.2); WHITE BLOOD COUNT 9.2 TH/MM3 (4.0-11.0)
[2016-08-05 12:14] LABS: HEMO FLAGS AUTO DIFF
[2016-08-05 12:17] LABS: BACTERIA, URINE OCC /hpf; BLOOD, URINE NEG (NEG); COMMENT (UR) CULT NOT INDICATED; CULTURE IF INDICATED CULT NOT INDICATED; GLUCOSE,URINE NEG (NEG); KETONE, URINE NEG (NEG); NITRITE,URINE NEG (NEG); PH, URINE 5.5 (5.0-8.5); SQUAMOUS EPITHELIAL CELL URINE 3 /hpf (0-5); TRANSITIONAL EPI CELLS, URINE <1 /hpf; URINE COLOR LIGHT-YELLOW (YELLW/STRAW)
[2016-08-05 12:39] LABS: ALKALINE PHOSPHATASE 148 U/L (45-117); ALT (GPT) 29 U/L (10-53); ANION GAP 7 MEQ/L (5-15); AST (GOT) 22 U/L (15-37); BICARBONATE 27.9 MEQ/L (21.0-32.0); BLOOD UREA NITROGEN 12 MG/DL (7-18); CHLORIDE 105 MEQ/L (98-107); GLOMERULAR FILTRATION RATE 80 ML/MIN (>89); GLUCOSE,FASTING 96 MG/DL (74-99); SODIUM (NA) 140 MEQ/L (136-145); TOTAL BILIRUBIN ADULT 0.4 MG/DL (0.2-1.0)
[2016-08-05 12:46] LABS: BHCG SCREEN QUALITATIVE LESS THAN 1 MIU/ML (0-5)
[2016-08-05 12:49] LABS: BANDS 11 % (0-6); EOSINOPHILS 6 % (0-4); POLYS (SEG NEUTROPHILS) 65 % (16-70); WBC DIFF SAMPLE 100
[2016-08-05 12:52] LABS: SCAN/DIFF FINAL DIFF MANUAL
== END ==
LOC: CPRE 11:36
PROVIDERS: ATTEND Obstetrics & Gynecology Gynecology
DX: Z01.812 Encounter for preprocedural laboratory examination (principal); Z30.2 Encounter for sterilization
CPT/HCPCS: 36415; 80053; 81001; 84703; 85007; 85027

== ENCOUNTER → 2016-08-15 | Day surgery (SDC) | payer MEDICAID ==
--- NOTE | 2016-08-11 13:07 | MH ---
cc: STEFAN ESQUIVEL MD DATE OF ADMISSION: 08/15/2016 DATE OF 1990 REASON FOR ADMISSION Tubal ligation. HISTORY OF PRESENT ILLNESS The patient is a 26-year-old white female 6, para 3, who is approximately 1 month . She has completed childbearing and wants to proceed with tubal sterilization. PAST MEDICAL HISTORY 1. The patient's medical history is notable for morbid obesity. Negative for heart, lung, liver disease, hypertension, diabetes or stroke. 2. Does have an issue with thyroid disorder. 3. History of anemia. PAST SURGICAL HISTORY Laparoscopic cholecystectomy. MEDICATIONS Synthroid 50 mcg daily. SOCIAL HISTORY Does not smoke, use alcohol or drugs. . Has good social support. RELAY ASSOCIATE HISTORY No STDs or abnormal Pap smears. OB HISTORY Three vaginal deliveries. FAMILY HISTORY Noncontributory. ALLERGIES None. REVIEW OF SYSTEMS As above. No chest pain, orthopnea, PND. No nausea, vomiting, fever or chills. No vaginal bleeding or discharge. PHYSICAL EXAMINATION VITAL SIGNS: Her height 5'2", weight is 250 pounds, BMI is 46. Blood pressure 120/70. GENERAL: The patient is alert and oriented, in no acute distress. PSYCHIATRIC: No sign of cognitive dysfunction or depression. HEENT: Within normal limits. NECK: Supple. No JVD. CHEST: Clear. HEART: Regular rate and rhythm. ABDOMEN: Soft, nontender. No hepatosplenomegaly. No CVA tenderness. PELVIC EXAM: Will be detailed under anesthesia. EXTREMITIES: Normal. SKIN: Without rashes. NEURO EXAM: Nonfocal. No DVT signs. ASSESSMENT Patient with multiparity, desires sterilization. We have discussed at length options for management for contraception. She is aware of the alternative methods including IUD, control pills, implants, vasectomy and other methods. She is aware of the risks of surgery. The patient is at risk for complications secondary to her prior surgery and her elevated body mass index. The patient agrees with the plan. At this point we will use DVT prophylaxis with sequential compression device and antibiotic prophylaxis of Ancef. The patient is aware of the risk of failure of tubal ligation is related to her young age and also possibility of regret is relatively high. She understands that there is a risk of failure of contraception and ectopic . She is also aware of irreversibility of the procedure. The patient has made informed choice to proceed. Anticipate outpatient procedure. MD GINA Fofana/KIARRA /11:39 AM /1:07 PM
[~2016-08-15] MED LIST changes: +*MEPERIDINE 25 MG INJ VIAL PERIprocedural Use ONLY ONE; +ACETAMINOPHEN 1000 MG/100 ML VIAL IV ONE; +CHLORHEXIDINE GLUCONATE 2 % 1 PACK (2 CLOTHS) TOPICAL PRN; +FAMOTIDINE 20 MG/2 ML VIAL ONE; -FERR325T PO; -IBUP-232 PO; +INSULIN HUMAN REGULAR 1,000 UNITS/10 ML VIAL SQ PRN; +KETOROLAC TROMETHAMINE 30 MG/ML (IVP) VIAL IV PUSH PRN; +KETOROLAC TROMETHAMINE 60 MG/2 ML (IM) VIAL IM ONE; +LACTATED RINGER'S 1000 ML IV PRN; +LIDOCAINE 1%/EPINEPHrine 1:100,000 SOLN 20 ML VIAL ONE; +METOPROLOL TARTRATE 25 MG TAB PO PRN; +MIDAZOLAM HCL 2 MG/2 ML VIAL ONE; +NEOSTIGMINE 3 MG/3 ML SYR IV ONE; +ONDANSETRON HCL 4 MG/2 ML VIAL IV PUSH ONE; +ONDANSETRON HCL 4 MG/2 ML VIAL IV PUSH PRN; +ONDANSETRON HCL 4 MG/2 ML VIAL ONE; +POVIDONE IODINE 5% (ANTISEPSIS KIT) 4 APPLICATIONS EACH NARE PRN; -PREN1CAP33; +PROPOFOL 200 MG/20 ML AMP IV ONE; +SODIUM CHLORID 0.9% 500 ML IV PRN; +SUGAMMADEX SODIUM 200 MG/2 ML VIAL IV PUSH ONE; +ceFAZolin 2 GM PREMIX 50 ML IV SCH; +fentaNYL CITRATE 250 MCG/5 ML AMP ONE; +traMADol HCL 50 MG TAB PO PRN
[2016-08-15 06:24] VITALS: BP 116/71; PULSE 88; RESP 16; TEMP 98.8; O2SAT 98
[2016-08-15 09:50] VITALS: BP 106/55; PULSE 70; RESP 16; TEMP 97.6; O2SAT 97
--- NOTE | 2016-08-16 16:50 | MP ---
cc: STEFAN ESQUIVEL DATE OF SURGERY: 08/15/2016 PREOPERATIVE DIAGNOSES 1. Multiparity, desires sterilization. 2. Intermittent right-sided pain. POSTOPERATIVE DIAGNOSES 1. Multiparity, desires sterilization. 2. Intermittent right-sided pain. 3. Right paratubal cyst. SURGEON Stefan Esquivel MD. ANESTHESIA General endotracheal OG tube. BOOK[employer] LIBRARIAN Andrew staff x1. PROCEDURE Bilateral salpingectomy. FLUID 1000 cc of crystalloid. BLOOD LOSS 5 cc. URINE OUTPUT 100 cc. FINDINGS Genitalia normal. POP-Q score: Aa is -1, Ap is 0. Point C is -5. Total vaginal length is 10. Genital hiatus is 8. Perineal body is 4. Uterus is anteverted, anteflexed, mobile. Tubes are notable for a paratubal cyst right approximately 3 cm, left is smaller about 1 cm. Ovaries are normal. Appendix is somewhat retrocecal but appears to be normal. Upper abdomen normal except status post a prior cholecystectomy. SPECIMENS Right and left tube. COMPLICATIONS None. DISPOSITION Recovery room stable. COUNTS Needle and sponge count correct. DRAINS Salas catheter. DISPOSITION Recovery Room stable. ANTIBIOTIC PROPHYLAXIS Ancef 2 grams. DVT PROPHYLAXIS Sequential compression device. SUMMARY OF INDICATION FOR PROCEDURE The patient with multiparity desires sterilization, and also has had issues with intermittent pelvic pain typically on the right. PROCEDURE IN DETAIL The patient was taken to the operating theatre, identified, prepped and draped in a fashion appropriate for the planned procedure. She was in dorsal lithotomy position with careful attention paid to placement of the legs in stirrups to avoid undue stress to sensitive neurovascular structures. Above findings noted. Neurovascular integrity documented. Positioning was somewhat complicated by the patient's BMI of over 45, but we padded the lower extremities and made sure that we had no excessive flexion or extension. The patient's umbilicus was infiltrated with epinephrine and lidocaine solution. A small incision was made and a 5-mm scope was placed under direct visualization. Gas insufflated. Axillary trocar was placed suprapubically 8 mm and the left lower quadrant 5 mm using a needle as a guide. The patient could not tolerate complete Trendelenburg but we were able to mobilize the adnexal structures with removing the bowel from the pelvis. The only significant finding were some small paratubal cysts otherwise the ovaries were normal, pelvis was normal, the appendix somewhat retrocecal but otherwise unremarkable. The right upper quadrant was noted for characteristic findings following prior cholecystectomy. Using Harmonic energy, the mesosalpinx was taken down on the right and the tube was amputated near the uterus. Hemostasis was good. IP ligament was unharmed. The ureter was well below the operative field and visualized easily. On the left side, the tube was elevated, mesosalpinx taken down and the tube transected using Harmonic energy. IP ligament was unharmed and the ureter was well below the operative field. Gas expressed. All areas were hemostatic with and without gas pressure. We did place hemostatic powder over the areas of dissection for added reassurance. Removal of ports was done under direct visualization. Gas expressed. Incisions closed with 4-0 Monocryl and Dermabond. The patient tolerated the procedure well and went to recovery in stable condition. MD GINA Fofana/MARIANO /8:36 AM /4:03 PM
== END | disposition home or self-care (01) ==
LOC: HSDC 05:55
PROVIDERS: ATTEND Obstetrics & Gynecology Gynecology
DX: Z30.2 Encounter for sterilization (principal); N83.8 Other noninflammatory disorders of ovary, fallopian tube and broad ligament; E07.9 Disorder of thyroid, unspecified; E66.01 Morbid (severe) obesity due to excess calories; Z68.42 Body mass index [BMI] 45.0-49.9, adult
CPT/HCPCS: 00840; 58661; 88302; J0131; J0690; J1885; J2175; J2250; J2405; J2710; J3010; J7120